=== PATIENT | male | born 1985 | race Caucasian/White ===

== ENCOUNTER 2019-11-17 10:49 | Emergency (ER) | payer OTHER ==
[2019-11-17] MEDS ORDERED: NORMAL SALINE 1000 ML 1,000 ML IV ONE (11:29)
[2019-11-17] MEDS ORDERED: ONDANSETRON ODT 4 MG TAB (6 TAB/ER DISP) PO PRN (11:29)
[2019-11-17] MEDS ORDERED: ONDANSETRON HCL INJ/PF 4 MG/2 ML SDV IV ONE (11:29)
--- NOTE | 2019-11-17 12:06 | RADIOLOGY REPORT (SQ) ---
EXAM DESCRIPTION: CHEST SINGLE VIEW IMAGES COMPLETED DATE/TIME: 11/17/2019 11:54 am REASON FOR STUDY: SOB +covid COMPARISON: None. EXAM PARAMETERS: NUMBER OF VIEWS: One view. TECHNIQUE: Single frontal radiographic view of the chest acquired. RADIATION DOSE: NA LIMITATIONS: None. FINDINGS: LUNGS AND PLEURA: There are bibasilar airspace opacities, right more than left. No sizabl e pleural effusion or pneumothorax. MEDIASTINUM AND HILAR STRUCTURES: No masses. Contour normal. HEART AND VASCULAR STRUCTURES: Heart normal in size. Normal vasculature. BONES: No acute findings. HARDWARE: None in the chest. IMPRESSION: Bibasilar airspace opacities, suggestive of pneumonia. Radiographic follow-up to resolu tion recommended. TECHNICAL DOCUMENTATION: JOB ID: [id number] [employer]- All Rights Reserved Reading location - IP/workstation name: [email or web address]
[2019-11-17 12:24] LABS: ABSOLUTE LYMPHOCYTES (AUTO) 0.7 10^3/uL (0.5-4.7); ABSOLUTE MONOCYTES (AUTO) 0.3 10^3/uL (0.1-1.4); ABSOLUTE NEUT (AUTO) 2.9 10^3/uL (1.7-8.2); BASOPHILS % (AUTO) 0.2 % (0-2); EOSINOPHILS % (AUTO) 0.3 % (0-6); HEMATOCRIT 38.9 % (37.9-51.0); HEMOGLOBIN 13.9 g/dL (13.5-17.0); LYMPHOCYTES % (AUTO) 18.6 % (13-45); MEAN CORPUSCULAR HEMOGLOBIN 31.5 pg (27.0-33.4); MEAN CORPUSCULAR HGB CONC 35.8 g/dL (32.0-36.0); MEAN CORPUSCULAR VOLUME 88 fl (80-97); MONOCYTES % (AUTO) 7.1 % (3-13); PLATELET COUNT 177 10^3/uL (150-450); RED BLOOD COUNT 4.41 10^6/uL (4.35-5.55); RED CELL DISTRIBUTION WIDTH 12.5 % (11.5-14.0); SEGMENTED NEUTROPHILS % (AUTO) 73.8 % (42-78); TOTAL CELLS COUNTED % (AUTO) 100 %; WHITE BLOOD COUNT 3.9 10^3/uL (4.0-10.5)
[2019-11-17 12:38] LABS: ALBUMIN 4.4 g/dL (3.5-5.0); ALKALINE PHOSPHATASE 59 U/L (38-126); ANION GAP 12 (5-19); ASPARTATE AMINO TRANSFERASE 25 U/L (17-59); BILIRUBIN,DIRECT 0.3 mg/dL (0.0-0.4); BILIRUBIN,TOTAL 0.6 mg/dL (0.2-1.3); BLOOD UREA NITROGEN 12 mg/dL (7-20); CALCIUM 8.7 mg/dL (8.4-10.2); CARBON DIOXIDE 28 mmol/L (22-30); CHLORIDE 100 mmol/L (98-107); GLUCOSE 89 mg/dL (75-110); POTASSIUM 3.9 mmol/L (3.6-5.0); TOTAL PROTEIN 7.1 g/dL (6.3-8.2)
--- NOTE | 2019-11-17 13:31 | ER Document Report ---
ED General - General Chief Complaint: General Weakness Stated Complaint: WEAKNESS,NAUSEA,FEVER,HEADACHE Time Seen by Provider: 11/17/19 11:12 Notes: Patient is a 34-year-old male who presents the emergency department with a chief complaint of generalized body aches, not feeling very well, and shortness of breath. Patient states that he has not been eating well and drinking. Patient states that he feels nauseous, but has not thrown up. Denies any past medical history. He does not take any medications. Patient was tested for COVID-19 and tested positive. He was exposed to someone from work. - Related Data Allergies/Adverse Reactions: No Known Allergies Allergy (Unverified 11/17/19 11:53) Past Medical History - Social History Smoking Status: Former Smoker Chew tobacco use (# tins/day): No Frequency of alcohol use: Occasional Drug Abuse: None Family History: Reviewed & Not Pertinent Past Surgical History: Reports: Hx Abdominal Surgery - hernia repairs, Hx Orthopedic Surgery - finger repair Review of Systems - Review of Systems Notes: REVIEW OF SYSTEMS: CONSTITUTIONAL : See HPI. EENT: Denies eye, ear, throat, or mouth pain, discharge, or symptoms. Denies nasal or sinus congestion. CARDIOVASCULAR: Denies chest pain. RESPIRATORY: Denies shortness of breath, cough, congestion, difficulty breathing, or wheezing. GASTROINTESTINAL: See HPI. GENITOURINARY: Denies difficulty urinating, burning, blood in urine, urgency or frequency. MUSCULOSKELETAL: Denies neck and back pain. Denies joint pain or swelling. SKIN: Denies rash, itchiness, or lesions HEMATOLOGIC : Denies easy bruising or bleeding. LYMPHATIC: Denies swollen, painful, enlarged glands. NEUROLOGICAL: Denies no numbness or tingling denies weakness. Denies headache. Denies altered mental status. Denies alteration in speech. PSYCHIATRIC: Denies stress, anxiety, alteration in sleep patterns, or depression. All other systems reviewed and negative. Physical Exam - Vital signs Vitals: Temp Pulse Resp BP Pulse Ox 98.9 F 93 20 141/82 H 100 11/17/19 10:59 11/17/19 10:59 11/17/19 10:59 11/17/19 10:59 11/17/19 10:59 - Notes Notes: PHYSICAL EXAMINATION: GENERAL: Appears well, healthy, well-nourished, no acute distress. HEAD: Normocephalic, atraumatic. EYES: PERRL, conjunctiva normal, all extraocular movements intact, sclera nonicteric ENT: Moist mucous membranes. NECK: Supple, no noticeable swelling, redness, rash. Normal range of motion. LUNGS: Diminished breath sounds in all lung beauchamp.. CARDIOVASCULAR: S1-S2, regular rate, regular rhythm. Radial pulses 2+, normal. ABDOMEN: Normoactive bowel sounds. Soft, nontender, no guarding, no rebound tenderness, and no masses palpated. EXTREMITIES: Normal strength and range of motion, no pitting or edema. No cyanosis. NEUROLOGICAL: Moves all extremities upon command. Strength 5/5 in all extremities. PSYCH: Normal mood, normal affect. SKIN: Warm, dry. No rash, lesions, ulcerations noted. Normal skin turgor. Course - Re-evaluation Re-evalutation: 11/17/19 13:59 Hematology is unremarkable. Chemistries are also unremarkable.Chest x-ray shows pneumonia. We will start the patient on azithromycin. Patient states that he feels better after receiving fluids. Follow-up precautions were given. Verbal discharge instructions were given to the patient. They verbalized understanding. They are stable for discharge. - Vital Signs Vital signs: Temp Pulse Resp BP Pulse Ox 98.9 F 91 18 123/77 100 11/17/19 14:30 11/17/19 14:30 11/17/19 14:30 11/17/19 14:30 11/17/19 14:30 - Laboratory Result Diagrams: 11/17/19 12:00 11/17/19 12:00 Laboratory results interpreted by me: 11/17/19 12:00 WBC 3.9 L Discharge - Discharge Clinical Impression: COVID-19 Pneumonia Qualifiers: Pneumonia type: due to unspecified organism Laterality: unspecified laterality Lung location: unspecified part of lung Qualified Code(s): J18.9 - Pneumonia, unspecified organism Condition: Stable Disposition: HOME, SELF-CARE Instructions: COVID-19 Guidance for Persons Under Investigation Additional Instructions: You were seen today in the emergency department for body aches. You have pneumonia to your COVID-19. Please take your antibiotics as prescribed. Continue stay in isolation. If you develop worsening symptoms, please return to the emergency department. Prescriptions: Albuterol Sulfate [Proair HFA Inhalation Aerosol 8.5 gm MDI] 2 puff IH Q4H PRN #1 mdi PRN Reason: Azithromycin [Zithromax 250 mg Tablet] 250 mg PO DAILY #4 tablet Azithromycin [Zithromax 250 mg Tablet] 250 mg PO DAILY #4 tablet
[2019-11-17] MEDS ORDERED: AZITHROMYCIN 250 MG TABLET PO ONE (14:00)
[2019-11-17 14:27] VITALS: BP 123/77
== END 2019-11-17 14:30 | disposition home or self-care (01) ==
LOC: ER 10:49
DX: U07.1 COVID-19 (principal); J18.9 Pneumonia, unspecified organism; R11.0 Nausea; R06.02 Shortness of breath; Z87.891 Personal history of nicotine dependence
CPT/HCPCS: 99284; 96361; 96374; 36415; 85025; 80053; 71045; J2405; J7030

== ENCOUNTER 2019-11-20 00:53 | Emergency (ER) | payer OTHER ==
[2019-11-20] MEDS ORDERED: NORMAL SALINE 1000 ML 1,000 ML IV ONE (05:23)
--- NOTE | 2019-11-20 05:59 | ER Document Report ---
ED General - General Stated Complaint: ANXIETY ATTACK +COVID POS Time Seen by Provider: 11/20/19 05:22 Notes: Patient is a 34-year-old male that comes emergency department for chief complaint of "a panic attack" and an episode that happened just prior to arrival where he states he felt a "wave rushing over me". He states that he suddenly felt shaky, weak, and "like I was going to ". He does report palpitations but denies chest pain, he states he felt short of breath for a brief period but then this resolved. He denies passing out, dizziness, vomiting, abdominal pain. He states that he is recovering from COVID-19, he states that he actually has not had a fever today for the first time in over a week. He states he feels dehydrated and he just wants to get checked out to "make sure I am okay". He states he has a history of panic attacks and he gets one every few months, he states this does feel similar and he already feels improved. Patient denies s moking, alcohol, or recreational drugs. He denies any daily prescribed medications. He is currently completing azithromycin and states he had been told he had COVID-19 pneumonia. - Related Data Allergies/Adverse Reactions: No Known Allergies Allergy (Unverified 11/17/19 11:53) Home Medications: Albuterol. Azithromycin Past Medical History - General Information source: Patient - Social History Smoking Status: Former Smoker Chew tobacco use (# tins/day): No Frequency of alcohol use: Social Drug Abuse: None Lives with: Family Family History: Reviewed & Not Pertinent Past Surgical History: Reports: Hx Abdominal Surgery - hernia repairs, Hx Orthopedic Surgery - finger repair - Immunizations Immunizations up to date: Yes Hx Diphtheria, Pertussis, Tetanus Vaccination: Yes Review of Systems - Review of Systems Constitutional: See HPI EENT: No symptoms reported Cardiovascular: See HPI Respiratory: See HPI Gastrointestinal: No symptoms reported Genitourinary: No symptoms reported Male Genitourinary: No symptoms reported Musculoskeletal: No symptoms reported Skin: No symptoms reported Hematologic/Lymphatic: No symptoms reported Neurological/Psychological: See HPI Physical Exam - Vital signs Vitals: Resp BP Pulse Ox 18 165/87 H 100 11/20/19 04:06 11/20/19 04:06 11/20/19 04:06 - Notes Notes: GENERAL: Alert, interacts well. No acute distress. HEAD: Normocephalic, atraumatic. EYES: Pupils equal, round, and reactive to light. Extraocular movements intact. ENT: Oral mucosa moist, tongue midline. Oropharynx unremarkable. Airway patent. NECK: Full range of motion. Supple. Trachea midline. No lymphadenopathy. LUNGS: Clear to auscultation bilaterally, no wheezes, rales, or rhonchi. No respiratory distress. Non-tender chest wall. HEART: Regular rate and rhythm. No murmur ABDOMEN: Soft, non-tender. Non-distended. Bowel sounds present in all 4 quadrant s. GENITOURINARY: Deferred EXTREMITIES: Moves all 4 extremities spontaneously. No edema, normal radial and dorsalis pedis pulses bilaterally. No cyanosis. BACK: no cervical, thoracic, lumbar midline tenderness. No saddle anesthesia, normal distal neurovascular exam. Moves all extremities in full range of motion. NEUROLOGICAL: Alert and oriented x3. Normal speech. Cranial nerves II through XII grossly intact. Strength 5/5 in all extremities. PSYCH: Normal affect, normal mood. SKIN: Warm, dry, normal turgor. No rashes or lesions noted. Course - Re-evaluation Re-evalutation: On my evaluation patient is calm and well-appearing. Vital signs unremarkable. Lungs clear, soft abdomen, unremarkable physical exam. CBC, chemistry, general work-up unremarkable, chest x-ray is negative for pneumonia. Patient was given IV fluids, on reevaluation patient states he feels great. Discussed his work- up. Patient states he is very reassured by this. Patient states he has a history of anxiety and used to follow-up with primary care and received medications for this, he requests a primary care referral, he has no additional complaints at this time. He denies SI or HI. Patient stable and well-appearing at time of discharge. - Vital Signs Vital signs: Temp Pulse Resp BP Pulse Ox 99.2 F 87 16 136/79 H 99 11/20/19 04:23 11/20/19 04:15 11/20/19 07:06 11/20/19 06:15 11/20/19 07:06 - Laboratory Result Diagrams: 11/20/19 05:45 11/20/19 05:45 Laboratory results interpreted by me: 11/20/19 11/20/19 05:00 05:45 Creatine Kinase 48 L Urine Ketones TRACE H - EKG Interpretation by Me Additional EKG results interpreted by me: EKG shows sinus rhythm at a rate of 81, QTc 460, normal axis, no T wave inversions or ST segment changes in consecutive leads. Machine reads as normal. Discharge - Discharge Clinical Impression: COVID-19, Panic attack Condition: Stable Disposition: HOME, SELF-CARE Additional Instructions: Your chest x-ray is clear, your work-up was unremarkable, your evaluation is reassuring. Follow-up with primary care for additional evaluation management including management of anxiety/panic attacks. Return if you worsen including spiking fever, vomiting, difficulty breathing, or if something is not right. Referrals: RAFAEL CRUZ MD [ACTIVE STAFF] - Follow up as needed
[2019-11-20 06:46] LABS: ABSOLUTE LYMPHOCYTES (AUTO) 1.2 10^3/uL (0.5-4.7); ABSOLUTE MONOCYTES (AUTO) 0.4 10^3/uL (0.1-1.4); ABSOLUTE NEUT (AUTO) 2.7 10^3/uL (1.7-8.2); BASOPHILS % (AUTO) 0.2 % (0-2); EOSINOPHILS % (AUTO) 0.9 % (0-6); HEMATOCRIT 38.1 % (37.9-51.0); HEMOGLOBIN 13.6 g/dL (13.5-17.0); LYMPHOCYTES % (AUTO) 27.7 % (13-45); MEAN CORPUSCULAR HEMOGLOBIN 30.9 pg (27.0-33.4); MEAN CORPUSCULAR HGB CONC 35.7 g/dL (32.0-36.0); MEAN CORPUSCULAR VOLUME 87 fl (80-97); MONOCYTES % (AUTO) 8.6 % (3-13); PLATELET COUNT 232 10^3/uL (150-450); RED CELL DISTRIBUTION WIDTH 12.5 % (11.5-14.0); SEGMENTED NEUTROPHILS % (AUTO) 62.6 % (42-78); TOTAL CELLS COUNTED % (AUTO) 100 %; WHITE BLOOD COUNT 4.3 10^3/uL (4.0-10.5)
[2019-11-20 07:00] LABS: ALBUMIN 4.2 g/dL (3.5-5.0); ALKALINE PHOSPHATASE 60 U/L (38-126); ANION GAP 10 (5-19); ASPARTATE AMINO TRANSFERASE 28 U/L (17-59); BILIRUBIN,DIRECT 0.2 mg/dL (0.0-0.4); BILIRUBIN,TOTAL 0.7 mg/dL (0.2-1.3); BLOOD UREA NITROGEN 10 mg/dL (7-20); CARBON DIOXIDE 24 mmol/L (22-30); CHLORIDE 105 mmol/L (98-107); CREATINE KINASE 48 U/L (55-170); GLUCOSE 99 mg/dL (75-110); POTASSIUM 4.2 mmol/L (3.6-5.0); TOTAL PROTEIN 6.6 g/dL (6.3-8.2)
[2019-11-20 07:06] LABS: APPEARANCE,URINE CLEAR; BILIRUBIN,URINE NEGATIVE (NEGATIVE); COLOR,URINE YELLOW; GLUCOSE, URINE NEGATIVE (NEGATIVE); KETONES,URINE TRACE mg/dL (NEGATIVE); LEUKOCYTE ESTERASE,URINE NEGATIVE (NEGATIVE); NITRITE,URINE NEGATIVE (NEGATIVE); PROTEIN,URINE NEGATIVE (NEGATIVE); URINE SPECIFIC GRAVITY 1.009; UROBILINOGEN,URINE NEGATIVE mg/dL (<2.0)
--- NOTE | 2019-11-20 07:14 | RADIOLOGY REPORT (SQ) ---
CHEST X-RAY 1 VIEW on 11/20/2019 at 6:55 AM CLINICAL INDICATION: Shortness of breath COMPARISON: 11/17/2019 FINDINGS: The lungs are clear. Cardiac, hilar and mediastinal contours are within normal limits. Pulmonary vascularity is within normal limits. No bony abnormality is noted. IMPRESSION: No active disease.
[2019-11-20 08:20] VITALS: BP 131/93
--- NOTE | 2019-11-22 16:44 | EKG REPORT ---
SEVERITY:- NORMAL ECG - SINUS RHYTHM : Confirmed by: Corey Slaas MD 22-Nov-2019 16:43:55
== END 2019-11-20 08:23 | disposition home or self-care (01) ==
LOC: ER 00:53
DX: U07.1 COVID-19 (principal); F41.0 Panic disorder [episodic paroxysmal anxiety]; R53.1 Weakness; Z87.891 Personal history of nicotine dependence; Z79.899 Other long term (current) drug therapy
CPT/HCPCS: 93005; 99285; 36415; 82550; 85025; 80053; 81001; 71045; 93010; J7030

== ENCOUNTER 2019-11-21 17:33 | Emergency (ER) | payer OTHER ==
[2019-11-21 18:06] VITALS: BP 119/60
[2019-11-21 18:14] LABS: ABSOLUTE LYMPHOCYTES (AUTO) 0.8 10^3/uL (0.5-4.7); ABSOLUTE MONOCYTES (AUTO) 0.3 10^3/uL (0.1-1.4); ABSOLUTE NEUT (AUTO) 5.3 10^3/uL (1.7-8.2); BASOPHILS % (AUTO) 0.2 % (0-2); EOSINOPHILS % (AUTO) 0.6 % (0-6); HEMATOCRIT 36.6 % (37.9-51.0); HEMOGLOBIN 13.2 g/dL (13.5-17.0); LYMPHOCYTES % (AUTO) 12.6 % (13-45); MEAN CORPUSCULAR HEMOGLOBIN 31.3 pg (27.0-33.4); MEAN CORPUSCULAR HGB CONC 36.1 g/dL (32.0-36.0); MEAN CORPUSCULAR VOLUME 87 fl (80-97); PLATELET COUNT 254 10^3/uL (150-450); RED BLOOD COUNT 4.21 10^6/uL (4.35-5.55); RED CELL DISTRIBUTION WIDTH 12.3 % (11.5-14.0); SEGMENTED NEUTROPHILS % (AUTO) 81.6 % (42-78); TOTAL CELLS COUNTED % (AUTO) 100 %; WHITE BLOOD COUNT 6.6 10^3/uL (4.0-10.5)
[2019-11-21 18:39] LABS: ALBUMIN 4.3 g/dL (3.5-5.0); ALKALINE PHOSPHATASE 64 U/L (38-126); ANION GAP 13 (5-19); ASPARTATE AMINO TRANSFERASE 59 U/L (17-59); BILIRUBIN,DIRECT 0.5 mg/dL (0.0-0.4); BILIRUBIN,TOTAL 1.4 mg/dL (0.2-1.3); BLOOD UREA NITROGEN 12 mg/dL (7-20); CALCIUM 9.2 mg/dL (8.4-10.2); CARBON DIOXIDE 22 mmol/L (22-30); CHLORIDE 105 mmol/L (98-107); CREATINE KINASE 38 U/L (55-170); GLUCOSE 94 mg/dL (75-110); POTASSIUM 3.9 mmol/L (3.6-5.0); TOTAL PROTEIN 6.8 g/dL (6.3-8.2)
[2019-11-21] MEDS ORDERED: NORMAL SALINE 1000 ML 1,000 ML IV ONE (19:19)
[2019-11-21] MEDS ORDERED: LORAZEPAM 0.5 MG TABLET PO ONE ×2 (19:57→20:42)
--- NOTE | 2019-11-21 20:23 | ER Document Report ---
ED Dizziness/Weakness - General Chief Complaint: Dizziness Stated Complaint: DIZZY Time Seen by Provider: 11/21/19 19:28 Notes: Patient is a 34-year-old male who presents emergency department with a chief complaint of dizziness. Patient tested positive for COVID-19. He was seen a few days ago and was started on azithromycin. He states that his breathing is much better. He was also seen last night for anxiety. Patient states that whenever he would take his albuterol, he would get more anxious. States that he gets dizzy when he stands. - Related Data Allergies/Adverse Reactions: No Known Allergies Allergy (Verified 11/21/19 18:03) Home Medications: Azithromycin, Past Medical History - General Information source: Patient - Social History Smoking Status: Former Smoker Frequency of alcohol use: Occasional Family History: Reviewed & Not Pertinent Patient has homicidal ideation: No Past Surgical History: Reports: Hx Abdominal Surgery - hernia repairs, Hx Orthopedic Surgery - finger repair - Immunizations Immunizations up to date: Yes Hx Diphtheria, Pertussis, Tetanus Vaccination: Yes Review of Systems - Review of Systems Notes: REVIEW OF SYSTEMS: CONSTITUTIONAL : Denies recent illness. Denies recent unintentional weight loss. Denies fever, chills, or sweats. EENT: Denies eye, ear, throat, or mouth pain, discharge, or symptoms. Denies nasal or sinus congestion. CARDIOVASCULAR: Denies chest pain. RESPIRATORY: Denies shortness of breath, cough, congestion, difficulty breathing, or wheezing. GASTROINTESTINAL: Denies nausea, vomiting, and diarrhea. Denies abdominal pain. Denies constipation. GENITOURINARY: Denies difficulty urinating, burning, blood in urine, urgency or frequency. MUSCULOSKELETAL: Denies neck and back pain. Denies joint pain or swelling. SKIN: Denies rash, itchiness, or lesions HEMATOLOGIC : Denies easy bruising or bleeding. LYMPHATIC: Denies swollen, painful, enlarged glands. NEUROLOGICAL: See HPI. Denies headache. Denies altered mental status. Denies alteration in speech. PSYCHIATRIC: Denies stress, anxiety, alteration in sleep patterns, or depression. All other systems reviewed and negative. Physical Exam - Vital signs Vitals: Temp Pulse Resp BP Pulse Ox 98.6 F 74 16 119/60 100 11/21/19 18:03 11/21/19 18:03 11/21/19 18:03 11/21/19 18:03 11/21/19 18:03 - Notes Notes: PHYSICAL EXAMINATION: GENERAL: Appears well, healthy, well-nourished, no acute distress. HEAD: Normocephalic, atraumatic. EYES: PERRL, conjunctiva normal, all extraocular movements intact, sclera nonicteric ENT: Moist mucous membranes. NECK: Supple, no noticeable swelling, redness, rash. Normal range of motion. LUNGS: Equal breath sounds bilaterally and clear to auscultation. No wheezes rales or rhonchi. CARDIOVASCULAR: S1-S2, regular rate, regular rhythm. Radial pulses 2+, normal. ABDOMEN: Normoactive bowel sounds. Soft, nontender, no guarding, no rebound tenderness, and no masses palpated. EXTREMITIES: Normal strength and range of motion, no pitting or edema. No cyanosis. NEUROLOGICAL: Moves all extremities upon command. Strength 5/5 in all extremities. PSYCH: Normal mood, normal affect. SKIN: Warm, dry. No rash, lesions, ulcerations noted. Normal skin turgor. Course - Re-evaluation Re-evalutation: 11/21/19 19:46 Patient received a liter of fluids from EMS. He states that he does feel better after receiving fluids. Stood the patient up. Denied any dizziness. Patient states that he does have a significant history of anxiety attacks in the past. Based off of his recent diagnosis of COVID-19, I suspect that having this diagnosis does cause a reasonable amount of anxiety. We will give him a dose of Ativan and see how he feels. If this helps him, we will send him home with Ativan to help with his anxiety. He was verified with the [place] drug reporting system that the patient has received Ativan 0.25 mg before. We will give him that amount. 11/21/19 20:40 Patient states that he feels better after receiving Ativan. We will send him home with a prescription for Ativan. Follow-up precautions were given. Verbal discharge instructions were given to the patient. They verbalized understanding. They are stable for discharge. - Vital Signs Vital signs: Temp Pulse Resp BP Pulse Ox 98.6 F 74 16 119/60 100 11/21/19 18:03 11/21/19 18:03 11/21/19 18:03 11/21/19 18:03 11/21/19 18:03 - Laboratory Result Diagrams: 11/21/19 17:54 11/21/19 17:54 Laboratory results interpreted by me: 11/21/19 11/21/19 11/21/19 17:54 17:54 20:12 RBC 4.21 L Hgb 13.2 L Hct 36.6 L MCHC 36.1 H Lymph % (Auto) 12.6 L Seg Neutrophils % 81.6 H Total Bilirubin 1.4 H Direct Bilirubin 0.5 H ALT 67 H Creatine Kinase 38 L Urine Ketones 80 H - EKG Interpretation by Me Additional EKG results interpreted by me: 11/21/19 20:45 Sinus rhythm. Rate 66. CA 148; QRS 98; QT 404; QTc 424. No ST elevations or depressions noted. Discharge - Discharge Clinical Impression: COVID-19, Panic attack Condition: Stable Disposition: HOME, SELF-CARE Additional Instructions: You were seen today in the emergency department for dizziness and not feeling well. Part of this may be due to your anxiety from COVID-19. You can take the Ativan every 6 hours as needed for anxiety. Continue quarantine as directed from previous visits. Prescriptions: Lorazepam [Ativan 0.5 mg Tablet] 0.25 mg PO Q6 #10 tab
[2019-11-21 20:38] LABS: APPEARANCE,URINE CLEAR; BILIRUBIN,URINE NEGATIVE (NEGATIVE); COLOR,URINE YELLOW; GLUCOSE, URINE NEGATIVE (NEGATIVE); KETONES,URINE 80 mg/dL (NEGATIVE); LEUKOCYTE ESTERASE,URINE NEGATIVE (NEGATIVE); NITRITE,URINE NEGATIVE (NEGATIVE); PROTEIN,URINE NEGATIVE (NEGATIVE); URINE SPECIFIC GRAVITY 1.005; UROBILINOGEN,URINE NEGATIVE mg/dL (<2.0)
== END 2019-11-21 21:47 | disposition home or self-care (01) ==
LOC: ER 17:33
DX: U07.1 COVID-19 (principal); F41.0 Panic disorder [episodic paroxysmal anxiety]; R42 Dizziness and giddiness
CPT/HCPCS: 99284; 96360; 96361; 36415; 82553; 82550; 85025; 80053; 81001; J7030